=== PATIENT | female | born 1990 | race Caucasian/White ===

== ENCOUNTER 2016-10-11 06:23 | Inpatient (IN) | payer BC ==
[~2016-10-11] VITALS: Ht 160 cm; Wt 83.0 kg
[2016-10-11] VITALS (17 sets, daily range): BP systolic 105–144; BP diastolic 53–95
[~2016-10-11 06:23] MED LIST: FERROCITE324 MG PO; IBUPROFEN800 MG PO; PRENATAL TABLE1 EAC3 PO
[2016-10-11 08:34] LABS: EOSINOPHIL (%) 0.2 % (0-5); HEMATOCRIT 35.1 % (36.0-46.0); IMMATURE GRANULOCYTE (%) 0.3 % (0.0-0.7); INSTRUMENT ABS NEUTROPHIL CT 7.5 K/uL; LYMPHOCYTE COUNT 1.4 K/uL (1.0-2.8); MCH 29.2 PG (29.0-34.0); MCHC 33.3 G/DL (30.0-36.0); MCV 87.5 FL (83-99); MEAN PLAT.VOLUME 9.9 uM^3 (9.5-12.4); MONOCYTE (%) 6.7 % (3-12); MONOCYTE COUNT 0.6 K/uL (0-0.8); NEUTROPHIL (%) 78.2 % (45-76); NEUTROPHIL COUNT 7.5 K/uL (1.8-6.4); PLATELET COUNT 178 K/uL (156-360); RBC DIS.WIDTH-CV 15.3 % (11.8-14.6); RBC DIS.WIDTH-SD 49.2 % (39-53); RED BLOOD COUNT 4.01 M/uL (3.80-5.20); WHITE BLOOD COUNT 9.6 K/uL (4.1-10.2)
[2016-10-12 03:12] VITALS: BP 114/76
[2016-10-12 07:16] VITALS: BP 124/64
[2016-10-12 07:24] LABS: EOSINOPHIL (%) 0.9 % (0-5); EOSINOPHIL COUNT 0.1 K/uL (0-0.3); HEMATOCRIT 34.5 % (36.0-46.0); IMMATURE GRANULOCYTE (%) 0.3 % (0.0-0.7); INSTRUMENT ABS NEUTROPHIL CT 6.5 K/uL; LYMPHOCYTE COUNT 2.3 K/uL (1.0-2.8); MCH 29.1 PG (29.0-34.0); MCHC 32.5 G/DL (30.0-36.0); MCV 89.6 FL (83-99); MEAN PLAT.VOLUME 9.7 uM^3 (9.5-12.4); MONOCYTE (%) 7.3 % (3-12); MONOCYTE COUNT 0.7 K/uL (0-0.8); NEUTROPHIL (%) 67.6 % (45-76); NEUTROPHIL COUNT 6.5 K/uL (1.8-6.4); PLATELET COUNT 181 K/uL (156-360); RBC DIS.WIDTH-CV 15.4 % (11.8-14.6); RBC DIS.WIDTH-SD 50.7 % (39-53); RED BLOOD COUNT 3.85 M/uL (3.80-5.20); WHITE BLOOD COUNT 9.6 K/uL (4.1-10.2)
[2016-10-12 23:21] VITALS: BP 94/53
[2016-10-13 08:12] VITALS: BP 102/59
== END 2016-10-13 15:16 | disposition home or self-care (01) | DRG 775 ==
LOC: LDRP-OP 06:23 → 2WEST 06:28 → LDRP-OP 19:10 → 2WEST 10-13 15:16 → LDRP-OP 11-06 12:00
PROVIDERS: Advanced Practice Midwife
PROC: 10E0XZZ Delivery of Products of Conception, External Approach (ICD-10-PCS; principal; 2016-10-11)
PROC: 10907ZC Drainage of Amniotic Fluid, Therapeutic from Products of Conception, Via Natural or Artificial Opening (ICD-10-PCS; 2016-10-11)
PROC: 3E033VJ Introduction of Other Hormone into Peripheral Vein, Percutaneous Approach (ICD-10-PCS; 2016-10-11)
PROC: 3E0S3BZ Introduction of Anesthetic Agent into Epidural Space, Percutaneous Approach (ICD-10-PCS; 2016-10-11)
DX: O48.0 Post-term pregnancy (principal); Z37.0 Single live birth; Z3A.40 40 weeks gestation of pregnancy; F32.9 Major depressive disorder, single episode, unspecified; O99.344 Other mental disorders complicating childbirth; O99.824 Streptococcus B carrier state complicating childbirth; O69.81X1 Labor and delivery complicated by cord around neck, without compression, fetus 1
CPT/HCPCS: 85025; C1755; J3010; J3370; J7120